=== PATIENT | female | born 1930 | race Caucasian/White ===

== ENCOUNTER → 2016-12-17 | Outpatient (REF) | payer MEDICARE, BC ==
[~2016-12-17] MED LIST: ACET325T38 PO; ALBU6.7H IH; ASPI-504 PO; ATEN100T13 PO; ATOR80TA PO; CLOP75TA3 PO; EMPA10TA PO; FAMO40TA6 PO; FERR-74 PO; FURO20TA4 PO; HALO50CR2 TP; LANS15CA5 PO; LINA5TAB PO; METF500T4 PO; MOME13HF2 IH; NIFE30TA7 PO; POLY1DRO2 OU; SODI15DR7 OU; VALS160T2 PO; VALS1TAB PO
[2016-12-17 09:05] LABS: BASOPHILS % (AUTO) 1 % (0-2); EOSINOPHILS # (AUTO) 0.1 10^3uL; EOSINOPHILS % (AUTO) 2 % (0-4); LYMPHOCYTES # (AUTO) 1.4 X10^3; MEAN CORPUSCULAR HEMOGLOBIN 27.5 PG (26.0-34.0); MEAN CORPUSCULAR VOLUME 88 FL (80-100); MEAN PLATELET VOLUME 11.3 FL (6.0-9.5); MONOCYTES # (AUTO) 0.5 X10^3; MONOCYTES % (AUTO) 10 % (3-11); NEUTROPHILS # (AUTO) 2.9 X10^3; NEUTROPHILS % (AUTO) 58 % (51-67); PLATELET COUNT 157 10^3uL (150-450); WHITE BLOOD COUNT 5.01 10^3uL (4.0-11.0)
[2016-12-17 09:21] LABS: MEAN CORPUSCULAR HGB CONC 31.4 g/dL (31.0-37.0)
[2016-12-17 09:55] LABS: ANION GAP 20.7 MEQ/L (3-15)
== END ==
LOC: LAB 08:55
PROVIDERS: ATTEND Family Medicine
DX: D50.8 Other iron deficiency anemias (principal); E11.65 Type 2 diabetes mellitus with hyperglycemia; E83.42 Hypomagnesemia; R79.89 Other specified abnormal findings of blood chemistry
CPT/HCPCS: 80048; 82043; 82728; 83036; 83735; 85025

== ENCOUNTER → 2017-01-19 | Outpatient (CLI) | payer MEDICARE, BC ==
[2017-01-19 10:21] LABS: BASOPHILS % (AUTO) 0 % (0-2); EOSINOPHILS # (AUTO) 0.1 10^3uL; EOSINOPHILS % (AUTO) 1 % (0-4); LYMPHOCYTES # (AUTO) 1.1 X10^3; MEAN CORPUSCULAR VOLUME 86 FL (80-100); MEAN PLATELET VOLUME 10.5 FL (6.0-9.5); MONOCYTES # (AUTO) 0.6 X10^3; MONOCYTES % (AUTO) 7 % (3-11); NEUTROPHILS # (AUTO) 7.6 X10^3; NEUTROPHILS % (AUTO) 80 % (51-67); PLATELET COUNT 185 10^3uL (150-450)
[2017-01-19 10:26] LABS: MEAN CORPUSCULAR HEMOGLOBIN 26.9 PG (26.0-34.0); MEAN CORPUSCULAR HGB CONC 31.2 g/dL (31.0-37.0)
[2017-01-19 10:40] LABS: ANION GAP 19.6 MEQ/L (3-15)
== END ==
LOC: LAB 10:06
PROVIDERS: ATTEND Family Medicine
DX: R79.89 Other specified abnormal findings of blood chemistry (principal); D50.8 Other iron deficiency anemias
CPT/HCPCS: 36415; 80048; 85025